=== PATIENT | female | born 1985 | race African-American/Black ===

== ENCOUNTER 2023-04-18 12:32 | Emergency (ER) | payer BC, SELFPAY ==
--- NOTE | ~2023-04-18 | CT_ITS ---
EXAMINATION: CT abd pelvis lumbar w con DATE: 04/18/2023 16:41 INDICATION: Epigastric abdominal pain. Nausea and vomiting. Right-sided low back pain. TECHNIQUE: Computed tomography (CT) of the abdomen and pelvis and lumbar spine was performed with 100 mL Omnipaque 350 intravenous contrast. Automated exposure control and iterative reconstruction techn ique were employed. The dose-length product was 394.93 mGy-cm. COMPARISON: None FINDINGS: CT ABDOMEN AND PELVIS: The visualized portions of the lung bases demonstrate mild atelectasis. No ple ural effusion. The heart size is normal. No pericardial effusion. The liver, gallbladder, spleen, hdz creas, adrenal glands, and kidneys are normal. There are multiple fibroids in uterus measuring up to 6.4 cm. There are no dilated loops of bowel. The appendix is normal. There are no pathologically enla rged lymph nodes. There is no ascites. There are erosions of the sacroiliac joints. CT LUMBAR SPINE: Bone alignment is normal. There is mild chronic anterior wedging of T12 vertebral [place]. Intervertebral disc heights are normal. The following disc levels are specifically discussed: L1-L2: The disc does not extend beyond the endplate margin. There is mild bilateral facet joint osteo arthritis. There is no neural foraminal stenosis. There is no central canal stenosis. L2-L3: The disc does not extend beyond the endplate margin. There is mild bilateral facet joint osteo arthritis. There is no neural foraminal stenosis. There is no central canal stenosis. L3-L4: The disc is bulging. There is mild bilateral facet joint osteoarthritis. There is mild bilater al neural foraminal stenosis. There is mild central canal stenosis. L4-L5: The disc is bulging. There is mild bilateral facet joint osteoarthritis. There is mild bilater al neural foraminal stenosis. There is mild central canal stenosis. L5-S1: The disc is bulging. There is mild bilateral facet joint osteoarthritis. There is no neural fo raminal stenosis. There is mild central canal stenosis. IMPRESSION: 1. Uterine fibroids. 2. Mild lumbar spondylosis. 3. Bilateral sacroiliitis. This finding may be seen with ankylosing spondylitis or enteropathy associ ated arthritis. Reviewed, dictated and finalized at location E. IMPRESSION: 1. Uterine fibroids. 2. Mild lumbar spondylosis. 3. Bilateral sacroiliitis. This finding may be seen with ankylosing spondylitis or enteropathy associated arthritis.
[2023-04-18 12:34] VITALS: BP 124/65; PULSE 91; RESP 20; TEMP 36.8; O2SAT 100
[2023-04-18] MEDS: ACETAMINOPHEN 500 MG TABLET 1000 MG PO (14:46)
[2023-04-18] MEDS: CYCLOBENZAPRINE HCL 5 MG TABLET PO (14:47)
[2023-04-18] MEDS: ONDANSETRON INJ 4 MG/2 ML VIAL IV PUSH (14:47)
[2023-04-18] MEDS: PANTOPRAZOLE SODIUM IV 40 MG VIAL IV PUSH (14:50)
[2023-04-18 15:00] LABS: Basophils Percent Auto 0.4 % (0.2-1.2); Eosinophils Absolute Auto 0.1 K/mm3 (0-0.3); Hematocrit 28.8 % (37.0-47.0); Hemoglobin 7.9 g/dL (12.0-15.0); Immature Granulocyte Absolute 0.02 K/mm3 (0.00-0.031); Immature Granulocyte Percent A 0.4 % (0-0.5); Lymphocytes Absolute Auto 0.54 K/mm3 (0.9-3.2); Lymphocytes Percent Auto 10.7 % (18.3-44.2); Mean Corpuscular HGB Conc 27.4 g/dl (32-36); Mean Corpuscular Hemoglobin 21.6 pg (26-34); Mean Corpuscular Volume 78.7 fl (80-100); Mean Platelet Volume 10.5 fl (7.4-10.4); Monocytes Absolute Auto 0.4 K/mm3 (0.1-0.6); Monocytes Percent Auto 8.7 % (2.6-8.5); Neutrophils Absolute Auto 3.9 K/mm3 (1.3-6.7); Neutrophils Percent Auto 77.8 % (45.5-73.1); Platelet Count Result 330 k/mm3 (150-375); Red Blood Count 3.66 M/mm3 (4.2-5.4); Red Cell Distribution Width 24.9 % (11.5-14.5)
[2023-04-18 15:03] LABS: Appearance Urine Cloudy (Clear); Bacteria Urine 1+ /hpf; Bilirubin Urine Negative (Negative); Blood Urine Negative (Negative); Color Urine Yellow (Yellow); Glucose Urine UA Negative (Negative); Ketones Urine Trace mg/dL (Negative); Leukocyte Esterase Ur Negative LEU/UL (Negative); Nitrate Urine Negative (Negative); Non Pathogenic Casts 0-2; Protein Urine Trace mg/dL (Negative); RBC Urine 0-2 /hpf (0-2); Specific Grav Ur 1.025 (1.001-1.035); Squamous Epithelial Cell Urine Moderate /hpf (Few); Urobilinogen Urine 0.2 mg/dL (<2.0); WBC Urine 0-5 /hpf; pH Urine 5.5 (5.0-9.0)
[2023-04-18 15:10] LABS: Hypochromasia 2+ (NORMAL); Ovalocytes 1+ (NORMAL); Platelet Estimate Adequate (Adequate)
[2023-04-18 15:11] LABS: Anisocytosis 2+ (NORMAL); Schistocytes None Seen (NORMAL)
[2023-04-18 15:13] LABS: Alanine Aminotransferase 22 U/L (6-35); Alkaline Phosphatase 58 U/L (38-126); Anion Gap 6 mmol/L (8-16); Aspartate Amino Transferase 44 U/L (14-36); Bilirubin,Total 0.3 mg/dL (0.2-1.3); Blood Urea Nitrogen 9 mg/dL (7-17); Calcium 9.2 mg/dL (8.4-10.2); Carbon Dioxide 22 mmol/L (22-30); Chloride 106 mmol/L (98-107); Estimated CRCL calculation 87 ml/min; Estimated Glomerular Filt Rate > 60; Glucose 82 mg/dL (65-110); Lipase 48 U/L (23-300); Sodium 134 mmol/L (137-145)
--- NOTE | 2023-04-18 15:17 | ED.BACK ---
HPI - Back Pain/Injury General Chief Complaint: Back Pain/Injury Stated Complaint: nausea/sciatica Time Seen by Provider: 04/18/23 13:09 Source: patient Mode of arrival: ambulatory Limitations: no limitations History of Present Illness HPI Narrative: Patient is a 37-year-old female who presents to the ED with report of right low back pain. Patient reports a history of sciatica which has presented similarly. She states she has not had an acute flare-up in several months. She works as a local semi-truck rental service attendant and reports recently having several long drives. She has had increased pain in her right low back, radiating down her buttock, down her posterior leg for the last 4 to 5 days. She has been taking Faustina back and body over the last couple of days without much relief. She also reports having epigastric abdominal pain, nausea, and an episode of dysuria 3 days ago. Denies history of kidney stones. Denies vomiting. Denies fever. Denies incontinence, numbness, saddle anesthesia, weakness. Related Data Allergies Allergy/AdvReac Type Severity Reaction Status Date / Time No Known Allergies Allergy Verified 04/18/23 14:46 Review of Systems Review of Systems: CONSTITUTIONAL: Denies fever, chills, or sweats. CARDIOVASCULAR: Denies chest pain. RESPIRATORY: Denies dyspnea. GASTROINTESTINAL: See HPI. GENITOURINARY: See HPI. MUSCULOSKELETAL: See HPI. NEUROLOGIC: Denies tingling, numbness, or weakness. All systems reviewed & are unremarkable except as noted in HPI and below Exam Narrative: GENERAL: Mildly uncomfortable appearing, well-nourished, non-toxic, in no acute distress. HEAD: Normocephalic, atraumatic. NECK: Supple. No adenopathy, no masses. RESPIRATORY: Airway patent, respirations nonlabored. Clear to auscultation bilaterally, no rales, rhonchi, wheezing. CARDIOVASCULAR: Regular rate and rhythm without murmurs, rubs, or gallops. Radial pulses 2+ and equal bilaterally. ABDOMINAL: Soft, tenderness in epigastric region, nondistended, no hepatosplenomegaly. Normoactive BS. MUSCULOSKELETAL: Moves all extremities. Strength/ROM intact without gross deformities. + SLR on R, reproducing pain in R lower back. TTP in R lumbar region and over R SI joint, reproducing pain. No midline lumbar spinal tenderness. Sensation intact. SKIN: Warm, dry, normal color. No rashes. NEURO: A&O X3. Speech clear. Cranial nerves II-XII grossly intact. Steady gait. No ataxic movements. No focal neurologic deficits. PSYCHIATRIC: Appropriate mood and affect. Normal interaction. Course Vital Signs Vital signs: Vital Signs Temperature 98.3 F 04/18/23 12:34 Pulse Rate 91 04/18/23 12:34 Respiratory Rate 20 04/18/23 12:34 Blood Pressure 124/65 04/18/23 12:34 Pulse Oximetry 100 04/18/23 12:34 Oxygen Delivery Room Air 04/18/23 12:34 Temperature 98.3 F 04/18/23 12:34 Pulse Rate 91 04/18/23 12:34 Respiratory Rate 20 04/18/23 12:34 Blood Pressure 124/65 04/18/23 12:34 Pulse Oximetry 100 04/18/23 12:34 Oxygen Delivery Room Air 04/18/23 12:34 MDM - Back Pain/Injury MDM Narrative Medical decision making narrative: Patient presented to ED with several day history of right low back and right lower extremity pain, history of sciatica, also reporting nausea and epigastric abdominal pain. Patient's vitals stable upon arrival. Exam with positive straight leg raise on the right, tenderness over right SI region. Seems most consistent with sciatica. No evidence of cord compression or cauda equina at this time. Normal neurologic exam. Work-up obtained given patient's additional complaints. Basic laboratory studies fairly unremarkable, did show anemia with hemoglobin of 7.9. Microcytic. Patient reports she is known to be anemic. She just restarted her iron supplements a few weeks ago. CBC with normal WBC, normal platelets. CMP with stable kidney function. Normal LFTs and lipase. Urinalysis with 1+ urine bacter
[2023-04-18 15:20] LABS: Poikilocytosis 1+ (NORMAL)
[2023-04-18 15:22] LABS: Add Urine Microscopic? YES
[2023-04-18 18:41] VITALS: BP 90/56; PULSE 66; RESP 20; O2SAT 99
== END 2023-04-18 18:52 | disposition home or self-care (01) ==
PROVIDERS: Emergency Provider Physician Assistant
DX: M54.41 Lumbago with sciatica, right side (principal); M46.1 Sacroiliitis, not elsewhere classified; R10.13 Epigastric pain; D64.9 Anemia, unspecified; D25.9 Leiomyoma of uterus, unspecified; M47.816 Spondylosis without myelopathy or radiculopathy, lumbar region
CPT/HCPCS: 36415; 72132; 74177; 80053; 81001; 81025; 83690; 85025; 87086; 96374; 96375; 99284; A9270; C9113; J1100; J2405; Q9967